=== PATIENT | male | born 1970 | race Caucasian/White ===

== ENCOUNTER 2017-04-17 18:14 | Emergency (ER) | payer SELFPAY ==
[2017-04-17 18:41] VITALS: TEMP 98.2
[2017-04-17] MEDS ORDERED: IBUPROFEN 600 MG TAB PO ONE (18:58)
[2017-04-17] MEDS ORDERED: OXYCODONE/APAP 5/325 TAB PO ONE ×2 (18:58→19:31)
--- NOTE | 2017-04-17 19:11 | EDPHY ---
H & P Time Seen by Provider: 04/17/17 18:39 HPI/ROS: This patient fell during a soccer game onto outstretched right hand with pain to the distal radius associated swelling since that time. Reports the pain is severe and worsens with wrist movement. He notes no other exacerbating factors. Denies any other associated symptoms. The incident occurred shortly prior to arrival he is accompanied by his . ROS: Musculoskeletal: No other injuries Neuro: No numbness or tingling HEENT: No complaints Cardiovascular: He notes no pallor or discoloration to the affected extremity. 5 point ROS is otherwise negative Past Medical/Surgical History: Foot fracture-saw Dr. Chappell at [facility] orthopedics for that injury. Smoking Status: Current every day smoker Physical Exam: Physical Exam Vital signs are normal. General: No acute distress HEENT: Atraumatic. Eyes: Pupils equal and react to light. Extraocular motions are intact. Lungs: No respiratory distress. Cardiac: Brisk capillary refill is intact throughout. Pulses are 2+ and symmetric in the affected extremity. Extremities: Atraumatic and normal except for right wrist Right wrist exam is notable for distal radius swelling tenderness. He has limited range of motion due to this does holding the wrist in flexion due to discomfort with any attempts to extend to neutral position. There is no significant ulnar tenderness. No other extremity injuries are noted. Skin: No rash or pallor. Neuro: Alert and with no sensorimotor deficits in the affected extremity. Initial differential diagnosis: Wrist fracture, lunate dislocation, perilunate dislocation, sprain Constitutional: Initial Vital Signs Temperature (C) 36.8 C 04/17/17 18:30 Heart Rate 82 04/17/17 18:30 Respiratory Rate 18 04/17/17 18:30 Blood Pressure 128/86 H 04/17/17 18:30 O2 Sat (%) 97 04/17/17 18:30 O2 Delivery Mode Room Air Allergies/Adverse Reactions: No Known Allergies Allergy (Unverified 06/27/16 14:45) Home Medications: Medication Instructions Recorded ANTABUSE 06/27/16 oxyCODONE IR [Oxycodone HCl Ir] 1 - 2 tab PO Q6 PRN #30 tab 06/27/16 traMADol [Ultram 50 mg (*)] 50 - 100 mg PO Q6 PRN #12 tab 04/17/17 MDM/Departure - MDM Diagnostics: Wrist x-ray: Distal radius fracture-mildly comminuted with mildly displaced intra-articular component. By my interpretation Imaging Results: Imaging Impressions Wrist X-Ray 04/17/17 18:38 Impression: 1. Comminuted intraarticular slightly impacted distal right radius fracture. 2. Nondisplaced ulnar styloid fracture. Imaging: I viewed and interpreted images myself Medications Given: Discontinued Medications Ibuprofen (Motrin) 600 mg PO EDNOW ONE Stop: 04/17/17 18:59 Last Admin: 04/17/17 19:04 Dose: 600 mg Oxycodone/Acetaminophen (Percocet 5/325) 1 tab PO EDNOW ONE Stop: 04/17/17 18:59 Last Admin: 04/17/17 19:05 Dose: 1 tab Oxycodone/Acetaminophen (Percocet 5/325) 1 tab PO EDNOW ONE Stop: 04/17/17 19:32 Last Admin: 04/17/17 19:33 Dose: 1 tab Oxycodone/Acetaminophen (Percocet 5/325mg Prepack#4) 1 btl TAKEHOME EDNOW ONE Stop: 04/17/17 20:08 Last Admin: 04/17/17 20:17 Dose: 1 btl ED Course/Re-evaluation: Ibuprofen and Percocet with partial relief of pain Patient is placed in Orthoglass sugar-tong splint by our abel Marquez with my supervision. Patient is neurovascularly intact post splint application. I discussed case with Dr. Geronimo Singh-on-call for orthopedic surgery He agrees with splinting plan and close follow-up. Discussion: Mildly comminuted intra-articular slightly impacted distal radius fracture without gross deformity or need for acute reduction. Patient is neurovascularly intact however close follow up with Orthopedics. No evidence of other injuries or other complicating factors - Depart Disposition: Home, Routine, Self-Care Clinical Impression: Distal radius fracture, right Qualifiers: Encounter type: initial encounter Fracture type: closed Fracture morphology: other fracture Qualified Code(s): S52.591A - Other fractures of lower end of right radius, initial encounter for closed fracture Condition: Good Instructions: Oxycodone/Acetaminophen (By mouth), Wrist Fracture in Adults (ED) Additional Instructions: Diagnosis: Distal radius fracture-comminuted, intra-articular Plan: Splint at all times Elevate the wrist whenever possible Tylenol and tramadol for pain control as needed. Follow up with [facility]opedics or with Dr. Singh with whom I spoke tonight. Call tomorrow to arrange for follow-up appointment to be seen in the office within the next 2 days or so. Wear the splint at all times. Go to the emergency department for any significant worsening despite the treatment plan. Stand Alone Forms: Work Excuse Prescriptions: traMADol [Ultram 50 mg (*)] 50 - 100 mg PO Q6 PRN #12 tab PRN Reason: wrist fracture Referrals: NONE *PRIMARY CARE P,. [Primary Care Provider] - As per Instructions Geronimo Singh MD [Medical Doctor] - As per Instructions
[2017-04-17] MEDS ORDERED: OXYCODONE/APAP 5/325MG PREPACK#4 BTL TAKEHOME ONE (20:07)
[2017-04-17 20:19] VITALS: BP 120/72; PULSE 75; RESP 16; O2SAT 96
== END 2017-04-17 20:24 | disposition home or self-care (01) ==
LOC: CED 18:14
DX: S52.614A Nondisplaced fracture of right ulna styloid process, initial encounter for closed fracture (principal); S52.571A Other intraarticular fracture of lower end of right radius, initial encounter for closed fracture; F17.200 Nicotine dependence, unspecified, uncomplicated; W19.XXXA Unspecified fall, initial encounter; Y99.8 Other external cause status; Y93.66 Activity, soccer
CPT/HCPCS: 73110-PO

== ENCOUNTER 2017-04-22 11:00 | Day surgery (SDC) | payer MEDICAID ==
[2017-04-22] MEDS ORDERED: BUPIVACAINE 0.5% 30 ML SDV ONE (11:24)
[2017-04-22] MEDS ORDERED: LR 1,000 ML IV ONE (11:58)
[2017-04-22] MEDS ORDERED: LIDOCAINE 1% 5 ML SDV ID PRN (11:58)
[2017-04-22] MEDS ORDERED: ceFAZolin 2 GM/DEXTROSE 100 ML IV ONE (12:00)
[2017-04-22] MEDS ORDERED: MIDAZOLAM 2 MG/2 ML VIAL ONE (14:13)
[2017-04-22] MEDS ORDERED: fentaNYL 100 MCG/2 ML INJ ONE ×4 (14:13→15:43)
[2017-04-22] MEDS ORDERED: PROPOFOL/EMULSION 500 MG/50 ML BOTTLE IV ONE (14:13)
[2017-04-22] MEDS ORDERED: PROPOFOL 200 MG/20 ML VIAL ONE ×3 (14:13→14:52)
[2017-04-22] MEDS ORDERED: LIDOCAINE 2% 5 ML SDV ONE (14:15)
[2017-04-22] MEDS ORDERED: HYDROmorphONE/DILAUDID 2 MG/ML INJ ONE (14:50)
[2017-04-22] MEDS ORDERED: DEXAMETHASONE 4 MG/ML VIAL ONE (15:07)
[2017-04-22] MEDS ORDERED: KETOROLAC 30 MG/1 ML SDV ONE (15:27)
[2017-04-22] MEDS ORDERED: OXYCODONE/APAP 5/325 TAB ONE (15:58)
[2017-04-22] MEDS ORDERED: HYDROmorphONE/DILAUDID 1 MG/ML SYR ONE (16:28)
== END 2017-04-22 17:10 | disposition home or self-care (01) ==
LOC: FSGY 11:00
PROVIDERS: ATTEND Orthopaedic Surgery
PROC: 0PSH04Z Reposition Right Radius with Internal Fixation Device, Open Approach (ICD-10-PCS; principal; 2017-04-22 13:30)
DX: S52.571A Other intraarticular fracture of lower end of right radius, initial encounter for closed fracture (principal); Y93.66 Activity, soccer; W19.XXXA Unspecified fall, initial encounter; Y92.322 Soccer field as the place of occurrence of the external cause
CPT/HCPCS: C1713; J0690; J1100; J1170; J1885; J2250; J2704; J3010

== ENCOUNTER → 2017-05-21 | Outpatient (CLI) | payer MEDICAID | LOC: BMCIMAGING 15:14 | PROVIDERS: ATTEND Physician Assistant | DX: S52.501D Unspecified fracture of the lower end of right radius, subsequent encounter for closed fracture with routine healing (principal); S52.611A Displaced fracture of right ulna styloid process, initial encounter for closed fracture ==

== ENCOUNTER → 2017-06-18 | Outpatient (CLI) | payer MEDICAID | LOC: BMCIMAGING 14:38 | PROVIDERS: ATTEND Physician Assistant | DX: S52.501D Unspecified fracture of the lower end of right radius, subsequent encounter for closed fracture with routine healing (principal); M19.031 Primary osteoarthritis, right wrist ==